=== PATIENT | male | born 1945 | race Caucasian/White ===

== ENCOUNTER 2016-09-23 15:55 | Inpatient (IN) | payer MEDICARE ==
[~2016-09-23] VITALS: Ht 180.3 cm; Wt 98.2 kg
--- NOTE | 2016-09-24 08:22 | HP ---
ADMIT: 09/23/2016 RM/LOC: 302 [facility] MR#: [id number] [address] [facility] [address] [place], [place] [address] [place] [address] History and Physical SEX: M AGE: 71 : 1945 DATE OF SERVICE: 09/23/2016 CHIEF COMPLAINT: Increasing shortness of breath over the last day or so - marked hypoxia on admission to the emergency room. HISTORY OF PRESENT ILLNESS: Mr. Pugh is a 71-year-old, male, [place] who [facility] by [facility] from his [facility] to the emergency room early this afternoon as he had been very short of breath. I cannot determine from the records and he cannot really tell me if he called the EMS himself or someone found him. At any rate on arrival in the emergency room, he was markedly hypoxic apparently into the high 60s. BiPAP was initiated, and he responded nicely to it. His workup included a mildly elevated white count of 13,000, but otherwise negative sepsis markers. Chest x-ray showed a COPD changes and right lower lobe pneumonia. He was lethargic on admission to the ER and "then perked up pretty well" on the BiPAP apparently back to his usual mental status. He is now admitted to ICU on continuing BiPAP for further evaluation and treatment. PAST MEDICAL HISTORY: Obtained from old records as it is hard for him to tell me through the BiPAP. He was last hospitalized apparently here in November 2009, with an exacerbation of the COPD. He also carries medical diagnoses of chronic atrial fibrillation, coronary artery disease, ongoing tobacco abuse, COPD with history of respiratory failure, systemic hypertension, chronic depression, posttraumatic stress disorder, chronic anxiety, hyperlipidemia, chronic back pain, benign prostatic hypertrophy, and hypothyroidism. CURRENT MEDICATIONS: Include: 1. Albuterol by nebulizer q.i.d. 2. Alfuzosin 10 mg daily. 3. Alprazolam 1 mg q.6 hours and extra 1 daily p.r.n. 4. Enteric-coated aspirin 81 mg daily. 5. Symbicort 160/4.5, 2 puffs b.i.d. 6. Carbamide peroxide 6.5%, 2 drops both ears once weekly p.r.n. 7. Cetirizine 10 mg daily. 8. Docusate 100 mg 2 caps b.i.d. p.r.n. 9. Doxepin 25 mg at bedtime. 10.Finasteride 5 mg daily. 11.Fluticasone 2 sprays both nostrils daily. 12.Furosemide 20 mg daily. 13.Glipizide 5 mg 1/2 tab b.i.d. 14.Hydrocodone 10/325, 1 tab q.4 hours p.r.n. 15.Levothyroxine 88 mcg daily. 16.Metoprolol tartrate 50 mg 2-1/2 tabs q.a.m. and 2 tabs q.p.m. 17.Multivitamin with minerals 1 daily. 18.Naloxone nasal spray 4 mg 1 spray one nostril p.r.n. 19.Nitrostat sublingual p.r.n. 20.Potassium chloride 10 mEq q.a.m. 21.Prazosin 2 mg 3 caps at bedtime. 22.Simvastatin 40 mg at bedtime. ADMIT: 09/23/2016 RM/LOC: 302 [facility] MR#: [id number] [address] [facility] [address] [place] [address] [address] History and Physical SEX: M AGE: 71 : 1945 23.Spiriva 18 mcg 1 inhalation daily. 24.Vitamin D3, 1000 international units daily. 25.Cyanocobalamin 100 mcg daily. 26.Ascorbic acid 500 mg daily. 27.Fish oil 1000 mg daily. 28.Garlic oil 1 tab daily. ALLERGIES: THERE ARE NO ALLERGIES REPORTED. SOCIAL HISTORY: Reveals that apparently he lives at home. He has a long history-nearly 50 pack years-of ongoing tobacco abuse and still smokes somewhere between 1-1/2 and 2 packs per day. He denies any alcohol use. As far as I can tell, he lives alone in his home in [place]. FAMILY HISTORY: Again from old records is essentially negative. REVIEW OF SYSTEMS: Difficult to get from him. He reports he had been "doing okay until this started." He denies any headache or any severe chest pain. He has had no nausea. He states his bowels have been working, and his bladder has been working. He has had no swelling of lower extremities. PHYSICAL EXAMINATION: GENERAL: He is now reasonably alert and seems oriented x3. I do not detect any obvious focal neurologic deficit. VITAL SIGNS: He is afebrile now. His pulse is irregular at about 110 to 115. Respirations are shallow at 22 on BiPAP. Blood pressures have been in the 120 to 140 range. GENERAL: He appears older than his stated age, has a long poorly kept pak, multiple tattoos over his entire body. His sclerae are anicteric. Oral mucosa is a little dry. I do not detect obvious oropharyngeal injection. NECK: Reasonably supple. I do not detect any jugular venous distention or thyromegaly. No bruits. CARDIAC: Sounds are quite distant. I do not detect an obvious murmur. His rhythm is irregularly irregular and again about 100 to 110 when I listened to him. LUNG: Sounds are markedly decreased, and he has scattered expiratory wheezes. ABDOMEN: Soft. No masses, tenderness, or organomegaly. EXTREMITIES: Lower extremities show no edema. He has diminished pulses in his feet, but his feet are warm. SKIN: No rash. Just multiple tattoos. NEUROLOGIC: Normal within his ability to test. LABORATORY DATA: On his initial CMP, his electrolytes were normal. His CO2 was greater than 45 mmHg, glucose 167, phosphorus 2.2, AST 46, and the CMP is otherwise within normal limits. Initial cardiac enzymes show an elevated CK at 692 U/L (normal 26 to 190) with a negative troponin of 0.039 (normal less than 0.040). His proBNP is 844 pg/mL. His white count is 12,600 with a slight left shift. Hemoglobin 16.2 with macrocytic indices. His ADMIT: 09/23/2016 RM/LOC: 302 [facility] MR#: [id number] [address] [address] [place] [address] History and Physical SEX: M AGE: 71 : 1945 procalcitonin is less than 0.05, and his lactic acid is 1.7 mmol/L. His chest x-ray was read as "some interstitial infiltrates in both lungs more prominent infiltrate is in the right lower lobe, cardiomegaly is present, but unchanged from the previous exam of 2013." PLAN: He has been admitted. We will put him in ICU on BiPAP (apparently, he reports having been intubated in the past). We will start dual antibiotic coverage and steroid intravenously. We will continue his usual medications as he can tolerate, and further treatment will depend on her response to our initial therapies. Again, this is a ID patient, and we do not feel he was clinically stable enough to be transferred to the [facility]. Apparently, Social Service will be in touch with ID during this hospitalization. Joss Davidson MD/ mars JOB #: [id number] CC: Joss Davidson, Attending Physician Joss Davidson, Family Physician
--- NOTE | 2016-09-26 22:26 | HP ---
ADMIT: 09/23/2016 RM/LOC: 302 [facility] MR#: [id number] [address] [address] ROWENAHAILEY[place]IANA Roger [facility] [place] [address] History and Physical SEX: F AGE: 71 : 1945 DATE OF SERVICE: ADDENDUM: IMPRESSION: 1. Apparent right lower lobe pneumonia with severe exacerbation chronic obstructive pulmonary disease. 2. Chronic atrial fibrillation - now with rapid ventricular response and hypertension. 3. Known coronary artery disease. 4. Ongoing tobacco abuse. 5. Systemic hypertension. 6. Chronic depression. 7. Posttraumatic stress disorder. 8. Chronic anxiety. 9. Hyperlipidemia. 10.Chronic pain syndrome/chronic back pain. 11.Benign prostatic hypertrophy. 12.Hypothyroidism. Joss Davidson MD/ mars JOB #: [id number] CC: Joss Davidson, Attending Physician Joss Davidson, Family Physician
--- NOTE | 2016-09-28 13:05 | ER ---
ADMIT: 09/23/2016 RM/LOC: 302 [facility] MR#: [id number] 26[address] [facility] [address] [place], [place] [address] ROWENAHAILEY KIANA Nancy [facility] [place] [address] Emergency Room Report SEX: M AGE: 71 : 1945 DATE: 09/23/2016 HISTORY OF PRESENT ILLNESS: The patient is a 71-year-old male, presents to the emergency room via ambulance from [place]. He has had shortness of breath and cough for 5 days, which continues in the emergency room. He feels pretty weak. He has had some wheezing. He has been sick. He literally tells that he is sick for 5 days. He has had fever at home. The ambulance when they picked him up, they said the fever was 102. He has some anxiety and his cough is very productive. He looks unkempt. REVIEW OF SYSTEMS: Otherwise, negative. PAST MEDICAL HISTORY: Extensive for respiratory problems like atrial fibrillation, coronary artery disease, tobacco abuse, COPD with history of respiratory failure, hypertension, depression, posttraumatic stress disorder, anxiety, hyperlipidemia, chronic back pain. SOCIAL HISTORY: Greater than 40 years pack history of tobacco abuse. He denies alcohol drinking at this time. FAMILY HISTORY: Negative for heart disease. ALLERGIES: NO KNOWN DRUG ALLERGIES. MEDICATIONS: See T-sheet. PHYSICAL EXAM: GENERAL: Very unkempt 71-year-old male, tattoos on his chest. HEENT: Oropharynx not injected. Mucous membranes are slightly dry. NECK: Supple. No thyromegaly. No jugular venous distention. HEART: Irregularly irregular. LUNGS: Decreased air movement throughout with diffuse expiratory wheezes. ABDOMEN: Soft, nontender. EXTREMITIES: No edema. No evidence of joint swelling. SKIN: Warm and dry without rash. LABORATORY DATA: He has a CBC; 12.6 white count, hemoglobin 16.2, hematocrit ADMIT: 09/23/2016 RM/LOC: 302 [facility] MR#: [id number] [address] [address] [place] [address] Emergency Room Report SEX: M AGE: 71 : 1945 52.4. Chemistry; CO2 more than 45, BUN 35, glucose 157, AST is 46, lactic acid of 1.1. Prolactin is also normal. INR is 1.17. BNP 844. Troponin 0.03. CK-MB 692, MB 6.5. His ABGs at 1710 on 4 L was pH of 7.2, pCO2 of 103, PO2 of 145. The repeated ABGs after the BiPAP improved greatly, pH 7.3, pCO2 of 74.1, PO2 is 69. Dr. Cesar visited with the patient and he reviewed the first ABGs, requested the BiPAP. We started antibiotic Levaquin. CLINICAL IMPRESSION: Nicotine abuse with respiratory distress, pneumonia, hypoxia, shortness of breath, wheezing, hyperglycemia. The patient admitted under Dr. Joss Davidson. He is not stable enough to travel to the [facility]. He was given Decadron 10 mg IV and normal saline 1 L. He is resting comfortably. JOHNNY Foreman / Cesar Cesar MD / modl JOB #: [id number] CC: Joss Davidson MD, Attending Physician Joss Davidson MD, Family Physician
[2016-10-01] MEDS ORDERED: PROVENTIL HFA6.7 GM IH (14:23)
[2016-10-01] MEDS ORDERED: XANAX DPS1 MG PO (14:24)
[2016-10-01] MEDS ORDERED: ASPIRIN325 MG PO (14:24)
[2016-10-01] MEDS ORDERED: ALFUZOSIN HCL E10 MG PO (14:24)
[2016-10-01] MEDS ORDERED: DULERA 200/58.8 GM IH (14:25)
[2016-10-01] MEDS ORDERED: DEBROX OTIC15 ML AU (14:26)
[2016-10-01] MEDS ORDERED: ZYRTEC DPS10 MG PO (14:26)
[2016-10-01] MEDS ORDERED: COLACE-DPS100 MG PO (14:26)
[2016-10-01] MEDS ORDERED: SINEQUAN DPS PO (14:26)
[2016-10-01] MEDS ORDERED: FLONASE 0.05% D16 GM NS (14:27)
[2016-10-01] MEDS ORDERED: PROSCAR DPS5 MG PO (14:27)
[2016-10-01] MEDS ORDERED: LASIX DPS40 MG PO (14:27)
[2016-10-01] MEDS ORDERED: SYNTHROID88 MCG PO (14:28)
[2016-10-01] MEDS ORDERED: HYDROCODON-ACE1 EAC6 PO (14:28)
[2016-10-01] MEDS ORDERED: GLUCOTROL DPS5 MG PO (14:28)
[2016-10-01] MEDS ORDERED: LOPRESSOR DPS100 MG PO (14:29)
[2016-10-01] MEDS ORDERED: LOPRESSOR DPS50 MG PO (14:29)
[2016-10-01] MEDS ORDERED: NARCAN4 MG IV (14:30)
[2016-10-01] MEDS ORDERED: NITROSTAT0.4 MG SL (14:30)
[2016-10-01] MEDS ORDERED: THERAPEUTIC MUL1 TA1 PO (14:30)
[2016-10-01] MEDS ORDERED: MINIPRESS2 MG PO (14:31)
[2016-10-01] MEDS ORDERED: SPIRIVA18 MCG IH (14:31)
[2016-10-01] MEDS ORDERED: ZOCOR DPS40 MG PO (14:31)
[2016-10-01] MEDS ORDERED: MICRO-K DPS10 MEQ PO (14:31)
[2016-10-01] MEDS ORDERED: GARLIC OIL1000 MG PO (14:32)
[2016-10-01] MEDS ORDERED: OMEGA-3 DPS1000 MG PO (14:32)
[2016-10-01] MEDS ORDERED: VITAMIN D31000 UNI1 PO (14:32)
[2016-10-01] MEDS ORDERED: VITAMIN B-12500 MCG PO (14:33)
[2016-10-01] MEDS ORDERED: VITAMIN C500 M1 PO (14:33)
[2016-10-01] MEDS ORDERED: TESSALON PERLE100 MG PO (14:34)
[2016-10-01] MEDS ORDERED: LEVAQUIN DPS750 MG PO (14:34)
[2016-10-01] MEDS ORDERED: PEPCID DPS20 MG PO (14:34)
[2016-10-01] MEDS ORDERED: MAALOX DPS30 ML PO (14:35)
[2016-10-01] MEDS ORDERED: MUCOMYST 20% IH (14:35)
[2016-10-01] MEDS ORDERED: DUONEB DPS3 ML IH (14:35)
[2016-10-01] MEDS ORDERED: TYLENOL DPS325 MG PO (14:36)
[2016-10-01] MEDS ORDERED: SURFAK DPS240 MG PO (14:36)
[2016-10-01] MEDS ORDERED: DELTASONE DPS10 MG PO (14:37)
--- NOTE | 2016-10-06 12:02 | DS ---
ADMIT: 09/23/2016 RM/LOC: 619 [facility] MR#: [id number] 2620 [facility] [address] [place], [place] [address] ROW[place]HAILEY [place] [address] General Discharge Summary SEX: M AGE: 71 : 1945 ADMISSION DATE: 09/23/2016 DISCHARGE DATE: 09/30/2016 FINAL DIAGNOSES: 1. 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 2. Posttraumatic stress disorder, stable. 3. Chronic atrial fibrillation. 4. Hyperlipidemia. 5. Hypothyroidism. 6. Benign prostatic hypertrophy. 7. Chronic pain syndrome. 8. Ongoing tobacco abuse. 9. Chronic anxiety and depression. 10.Known coronary artery disease. BRIEF HISTORY: This is a 71-year-old, male, [place] usually gets his care through the ID. He was brought by EMS from his [facility] to the emergency room the afternoon of admission as he had been extremely short of breath. He could not really tell me how long that it had been going on. On arrival in the emergency room, he was markedly hypoxic apparently into the high 60s. BiPAP was initiated and he responded nicely to it. His workup included a mildly elevated white count of 13,000, but otherwise negative sepsis markers. Chest x-ray showed COPD changes and right lower lobe pneumonia. He was admitted to ICU on continuing BiPAP for further evaluation and treatment. SIGNIFICANT LAB AND X-RAY: On admission CBC showed a hemoglobin of 16.2 with macrocytic indices, platelets of 186,000, and white count of 12,600. Serial CBCs were followed and by 09/30 his hemoglobin was 12.4, still with macrocytic indices. The white count of 12,000. Pro-time and PTT on admission were normal. Admitting urinalysis showed 3+ protein, 1+, ketones, 2+ occult blood and was otherwise within normal limits. On admission, cardiac enzymes were evaluated and repeated x1 and were negative. On admission, CMP was normal but for a CO2 greater than 45 mmol/L, glucose of 157 mg/dL, phosphorus of 2.2 mg/dL (normal 2.5-4.9), AST of 46 U/L (normal 10- 40). His magnesium was 2.1 mg/dL (normal 1.8-2.4). On admission, proBNP was 844 pg/mL. Serial chemistries were followed. On 09/25, his lactic acid was 1.2 mmol/L. By 09/30 his BMP showed CO2 greater than 45 mmol/L, glucose of 151 mg/dL and ADMIT: 09/23/2016 RM/LOC: 619 [facility] MR#: [id number] [address] [address] [place] [address] General Discharge Summary SEX: M AGE: 71 : 1945 calcium was 7.8 mg/dL. Serial bedside blood sugars were followed. Serial blood gases were followed. On admission in the ER, his corrected pH was 7.274 with a corrected pCO2 of 102.6 mmHg (normal 35 to 45), and corrected pO2 of 143 mmHg (normal 80-100) with a calculated O2 saturation of 99%. On 09/26, C-reactive protein was 0.63 mg/dL (normal less than 0.30), and repeat on 09/27 was 0.40 mg/dL. On 09/24, Legionella pneumophila urine antigen was positive and strep pneumoniae urine antigen was negative. Admission blood cultures x2 had no growth after 5 days incubation. Admitting urine culture had no growth after 5 days incubation. Respiratory pathogen viral panel had no targets detected. The patient's blood type is A, Rh positive with a negative antibody screen. Chest x-ray on admission showed "cardiomegaly and right lower lobe infiltrate." Serial chest x-rays were followed and by 09/27 was read as "decreased ground-glass opacities of the lung bases worse on the right. Could be decreasing edema or infectious process. No pleural effusion. Heart size stable." EKG on admission was read as atrial fibrillation with rapid ventricular response, rightward axis, possible septal defect, age undetermined compared to 07/17/2014 loss of R-wave in V2." HOSPITAL COURSE: The patient was admitted through the emergency room to ICU with routine ICU orders and continued on BiPAP. The ER sepsis protocol was followed with levofloxacin 750 mg IV daily and Zosyn 3.375 g IV q.8 hours. DuoNeb were given q.i.d. and q.1-2 hours p.r.n. BiPAP oxygen was adjusted to maintain his sats greater than 90. An IV of normal saline was run at 50 mL/hour. He was allowed full liquids. He was placed on low-dose Humalog with q.i.d. Accu-Cheks per protocol. His med list from the ID was confirmed. Contact was had by the nursing staff with his daughter Jessie from [facility] stating that he would wear O2 at 4 L at home sometimes increase for activity, but he had no home CPAP or BiPAP. By 09/24, I attempted to wean from BiPAP, we were not totally successful. His Zosyn was discontinued. He was changed to routine telemetry orders. By 09/25, he was still hypoxic and was resistant to using any kind of mask. Pulmonary consultation with Dr. Gonzalez was requested and Dr. Gonzalez was kind enough to see him. Mucomyst 20%, q.i.d. was added, his Solu-Medrol was decreased to mg IV q.12 hours. He was placed on Pepcid 20 mg at ADMIT: 09/23/2016 RM/LOC: 619 [facility] MR#: [id number] [address] [address] [place] [id number] General Discharge Summary SEX: M AGE: 71 : 1945 bedtime. The patient was allowed Xanax 0.5 mg q.i.d. p.r.n. By 09/26 he was starting to clear without much in the way of wheezes. His IV was decreased to keep open rate. Physical Therapy and Occupational Therapy were requested. His Solu-Medrol was decreased to mg IV q.12 hours. By 09/27 (ICU day 4), he remained afebrile. Vital signs were otherwise stable. His pulse was 70-100 with atrial fibrillation. His chest x-ray was improved. Nasal cannula O2 delivery was tried during the day. His IV Solu-Medrol was discontinued. He was placed on prednisone 30 mg p.o. daily and Levaquin was changed to 750 mg p.o. q.24 hours. He was given Tessalon 200 mg t.i.d. and BiPAP was made p.r.n. Incentive spirometry was initiated. On 09/27, he was unable to void, but had the urge, that was just monitored. By 09/28 (hospital day 5) he remained afebrile. Vital signs were stable. He was alert, had no distress. He was tolerating his nasal cannula. Home health consultation was requested for eventual help with snf, physical therapy, and help with his ADLs. He was taken off telemetry and placed on routine Med/Surg orders. Through all this, the social service department [facility] with the [facility] who were [facility] throughout his hospital stay. By 09/29, he had slow improvement and by 09/30, he remained afebrile. He felt he could manage things at home and was felt safe to send him home. DISCHARGE MEDICATIONS: On dismissal, his medications included: 1. Prednisone 30 mg daily for 5 days and 20 mg daily for 5 days then 10 mg daily for 5 days and then stop. 2. Aspirin 81 mg daily. 3. Glucotrol 5 mg 2.5 mg b.i.d. 4. Lasix 20 mg daily. 5. Levaquin 750 mg p.o. daily x 5 more days. 6. Lopressor 100 mg at bedtime and 125 mg in the a.m. 7. Minipress 6 mg at bedtime. 8. Farwell-3 2000 mg daily. 9. Pepcid 20 mg at bedtime. 10.Proscar 5 mg daily. 11.Sinequan 25 mg at bedtime. 12.Synthroid 0.088 mg daily. 13.Tessalon Perles 200 mg t.i.d. 14.Multivitamin one daily. 15.Uroxatral 10 mg daily. 16.Vitamin B12 500 mcg daily. 17.Vitamin C 500 mg daily. 18.Vitamin D 1000 International Units daily. 19.Xanax 1 mg q.i.d. 20.Zocor 40 mg at bedtime. 21.Zyrtec 10 mg daily. ADMIT: 09/23/2016 RM/LOC: 619 [facility] MR#: [id number] [address] [address] [address] [address] General Discharge Summary SEX: M AGE: 71 : 1945 22.Symbicort 160/4.5, two puffs b.i.d. 23.DuoNeb q.i.d. and p.r.n. with Mucomyst q.i.d. 24.Spiriva 18 mcg daily. 25.Flonase 0.05% two sprays each nostril at bedtime. 26.P.r.n. orders for Colace, hydrocodone, Maalox, Surfak, Tylenol, Xanax, DuoNeb, Proventil, Nitrostat, and Debrox ear drops. He will be allowed ADA diet as tolerated and activity as tolerated. Home health will be contacted. Arrangements were made for him to be seen at the [facility] in 5-7 days in followup. He was encouraged to stop his cigarette use at home. CONDITION ON DISCHARGE: Condition on discharge was stable on the above treatment. FINAL DISPOSITION: As noted. PROGNOSIS: Guarded to poor. Joss Davidson MD/ mars JOB #: [id number] CC: Joss Davidson MD, Attending Physician Joss Davidson MD, Family Physician Mike Gonzalez MD . [facility]
[2016-10-12] MEDS ORDERED: GLUTOSE 1537.5 GM PO (06:41)
--- NOTE | 2016-10-19 16:07 | CO ---
ADMIT: 09/23/2016 RM/LOC: 302 [facility] MR#: [id number] 2620 [facility] [address] [place] [phone] [place] [address] Consultation SEX: M AGE: 71 : 1945 DATE OF CONSULTATION: 09/25/2016 ATTENDING PHYSICIAN: Joss Davidson CONSULTING PHYSICIAN: Mike Gonzalez MD This 71-year-old, white male, smoker (began at 18 years old) [facility] patient with PTSD with history of COPD exacerbation, reportedly hospitalized in November of 2009 with also a history of atrial fibrillation who presented with marked increased shortness of breath for what is believed to be 2 days. The patient was brought to the emergency room and was stated to have a "respiratory rate of 60" cough suggestive of productive and thick, he reports with pale yellow. The patient does not have any fever or chills and shortness of breath while chronic became significantly worse. No difficulty eating, liquids or solids. He has satisfactory urine and bowel movements daily and is able to ambulate around his home. PAST SURGICAL HISTORY: Tonsillectomy. ILLNESSES: Atrial fibrillation, hypertension, PTSD, anxiety, hyperlipidemia, BPH, hypothyroidism. MEDICATIONS: Current: 1. Aspirin. 2. Glucotrol. 3. Lasix 20 mg daily. 4. Lopressor 125 mg daily and 100 mg at bedtime. 5. Freedom 3. 6. Proscar. 7. Sinequan. 8. Synthroid. 9. Multivitamin. 10.Uroxatral. 11.Vitamin B12. 12.Vitamin C and D. 13.Xanax 1 mg p.o. q.i.d. 14.Zocor 40 mg at bedtime. 15.Zyrtec. 16.Dulera. 17.DuoNeb. 18.Spiriva. 19.Flonase. 20.Lovenox. 21.NovoLog. 22.Levaquin. 23.Normal saline. 24.Solu-Medrol 80 mg IV q.12. Home medications do not include prednisone or proton-pump inhibitor or H2 ADMIT: 09/23/2016 RM/LOC: 302 [facility] MR#: [id number] 2620 [facility] [address] [place] [phone] [place] [facility] [place] [address] Consultation SEX: M AGE: 71 : 1945 syl. FAMILY HISTORY: Father at 59 years old with complications of diabetes. Mother 69 years old of lung cancer. SOCIAL HISTORY: Lives alone, , 4 children, one smokes, but all alive and well. Alcohol, quit 20 years but reports not heavy to the level of AA. Tobacco started 18 years old. Worked as a blanca. Resides with his dog, Konstantin. REVIEW OF SYSTEMS: Weight, uncertain changes. PHYSICAL EXAM: GENERAL: Appears chronically ill, but also has been confused, dyspneic. VITAL SIGNS: Heart rate is atrial fibrillation at 113-119, SpO2 is 99% on 51% Airvo now, blood pressure 118/75, respiratory rate 18 to 24, temp 99. HEENT: Nares and throat are clear and very dry. Mallampati III. NECK: No lymphadenopathy or JVD. HEART: Regular rate and rhythm. LUNGS: Decreased breath sounds bilaterally. Prolonged expiratory phase. Mild wheeze. ABDOMEN: Soft, slightly distended. Nontender. No definite hepatosplenomegaly. EXTREMITIES: Plus minus clubbing. No cyanosis or edema. NEURO: Motor and sensory grossly intact. Affect is slightly confused and somewhat anxious. LABORATORY DATA: ABG 7.38, pCO2 of 74, PO2 of 69, sats 92%. AST is 46. ProBNP is 844, D-dimer is less than 0.10. WBC 9.3, hemoglobin 15.0, and platelet 179. Chest x-ray 09/24/2016, COPD, emphysema. ASSESSMENT AND RECOMMENDATION: 1. Acute on chronic respiratory failure - The patient has been intolerant of BiPAP and has been adjusting and will start to adjust to an Airvo unit, first initiated change appears to be reasonable. We will try to obtain an ABG and/or even use a brief evaluation of end-tidal, noninvasive ABGs not obtainable and the patient remains on only a low O2 requirement. 2. Posttraumatic stress disorder, stable. 3. Chronic obstructive pulmonary disease - the patient has not been on any prednisone at home, so we will adjust down his Solu-Medrol 30 mg IV q.12, see if this contributes to confusion. 4. Hypoxia - the patient reports being on 2 L at rest and 4 L at bedtime at ADMIT: 09/23/2016 RM/LOC: 302 [facility] MR#: [id number] [address] [place] [phone] [place] [address]361 Consultation SEX: M AGE: 71 : 1945 home. This will need to be clarified as well. 5. Atrial fibrillation. 6. Hyperlipidemia. 7. Hypothyroidism. 8. BPH. 9. Chronic pain syndrome. 10.Tobacco abuse - discussed with him about quitting ensued as well and will be ongoing. 11.Chronic anxiety. 12.Rehab - the patient would likely benefit significantly from a formal program, but needs to quit smoking. Total critical care time greater than 45 minutes. Mike Gonzalez MD/ mars JOB #: [id number] CC: Joss Davidson, Attending Physician Joss Davidson, Family Physician
[2016-11-02] MEDS ORDERED: FEOSOL-DPS325 MG PO (15:08)
[2016-11-02] MEDS ORDERED: UROXATRAL10 MG PO (15:13)
[2016-11-02] MEDS ORDERED: LEVEMIR100 UNIT/1 SQ (15:16)
[2016-11-02] MEDS ORDERED: LOVENOX DP40 MG/0.4 SQ (15:16)
[2016-11-02] MEDS ORDERED: NOVOLOG100 UNIT/2 SQ (15:18)
[2016-11-02] MEDS ORDERED: GLUCAGON HCL1 MG IM (15:22)
== END 2016-09-30 15:05 | disposition home or self-care (01) | DRG 177 ==
LOC: ER 15:55 → 3ICU 19:45 → EDSEX 19:45 → 3ICU 09-24 16:47 → 6PED 09-29 15:24
PROVIDERS: ADMIT Family Medicine
DX: A48.1 Legionnaires' disease (principal); J96.21 Acute and chronic respiratory failure with hypoxia; I48.2 Chronic atrial fibrillation; J44.0 Chronic obstructive pulmonary disease with (acute) lower respiratory infection; J17 Pneumonia in diseases classified elsewhere; I25.10 Atherosclerotic heart disease of native coronary artery without angina pectoris; I10 Essential (primary) hypertension; F32.9 Major depressive disorder, single episode, unspecified; F43.10 Post-traumatic stress disorder, unspecified; F41.9 Anxiety disorder, unspecified; E78.5 Hyperlipidemia, unspecified; N40.0 Benign prostatic hyperplasia without lower urinary tract symptoms; G89.4 Chronic pain syndrome; M54.9 Dorsalgia, unspecified; F17.210 Nicotine dependence, cigarettes, uncomplicated; E03.9 Hypothyroidism, unspecified; Z79.82 Long term (current) use of aspirin; Z79.84 Long term (current) use of oral hypoglycemic drugs

== ENCOUNTER 2016-10-07 09:06 | Inpatient (IN) | payer MEDICARE ==
[~2016-10-07] VITALS: Ht 179.1 cm; Wt 104.9 kg
[~2016-10-07 09:06] MED LIST: ALFUZOSIN HCL E10 MG PO; ASPIRIN325 MG PO; COLACE-DPS100 MG PO; DEBROX OTIC15 ML AU; DELTASONE DPS10 MG PO; DULERA 200/58.8 GM IH; DUONEB DPS3 ML IH; FLONASE 0.05% D16 GM NS; GARLIC OIL1000 MG PO; GLUCOTROL DPS5 MG PO; HYDROCODON-ACE1 EAC6 PO; LASIX DPS40 MG PO; LEVAQUIN DPS750 MG PO; LOPRESSOR DPS100 MG PO; LOPRESSOR DPS50 MG PO; MAALOX DPS30 ML PO; MICRO-K DPS10 MEQ PO; MINIPRESS2 MG PO; MUCOMYST 20% IH; NARCAN4 MG IV; NITROSTAT0.4 MG SL; OMEGA-3 DPS1000 MG PO; PEPCID DPS20 MG PO; PROSCAR DPS5 MG PO; PROVENTIL HFA6.7 GM IH; SINEQUAN DPS PO; SPIRIVA18 MCG IH; SURFAK DPS240 MG PO; SYNTHROID88 MCG PO; TESSALON PERLE100 MG PO; THERAPEUTIC MUL1 TA1 PO; TYLENOL DPS325 MG PO; VITAMIN B-12500 MCG PO; VITAMIN C500 M1 PO; VITAMIN D31000 UNI1 PO; XANAX DPS1 MG PO; ZOCOR DPS40 MG PO; ZYRTEC DPS10 MG PO
--- NOTE | 2016-10-08 12:40 | ER ---
ADMIT: 10/07/2016 RM/LOC: ER [facility] MR#: [id number] 26[address] [facility] [address] SAMANTHA PUGH [address] [address] Emergency Room Report SEX: M AGE: 71 : 1945 DATE: 10/07/2016 ADDENDUM: A 71-year-old white male, though he does go by Samantha, coming in with shortness of breath. He has COPD. He recently was admitted for pneumonia, questionable Legionella. His lactate is okay, but his white count is 14,000. Did a CT of his chest, which did not show a PE or pneumonia, just more COPD. His Chemistry is otherwise negative. Troponin had just barely a slight bump. He does have atrial fibrillation, his rate is 78. [facility] I spoke with Dr. Bowen, she will admit him. We had already given Zosyn and vanc just to cover him. So, this is COPD with exacerbation, been a little hypoxia. At this time, he also has other multiple medical comorbidities. CONDITION ON DISCHARGE: Serious, but stable. Jamar Carrington MD/ mars JOB #: [id number] CC: Jamar Carrington MD, Attending Physician [facility] Physician, Family Physician
--- NOTE | 2016-10-09 08:03 | HP ---
ADMIT: 10/07/2016 RM/LOC: 431 [facility] MR#: [id number] 2620 [facility] [address] [place] [phone] [place] [address] History and Physical SEX: M AGE: 71 : 1945 DATE OF SERVICE: CHIEF COMPLAINT: Shortness of breath. HISTORY OF PRESENT ILLNESS: Samantha is a 71-year-old, male, who generally gets care through the NH, who is admitted today as a city call patient. He was just admitted 2 weeks ago for pneumonia and COPD exacerbation. He was at that time treated in the intensive care unit, but did improve. He was discharged on September 30. He says he did not feel quite ready to go home, but they could not find any placement for him at the NH or in [place] so he went home with home health care. At that time, he continued his medications including a prednisone taper, antibiotics, and DuoNeb 4 times daily. He is also on chronic oxygen. He says he continues to decline since being at home, and when the home health came to evaluate him today, he was hypoxic supposedly with oxygen saturations in the 70s. He also has felt weak and this has been progressive. He now has difficulty getting in and out of a chair. He says his diet has been poor, and he has difficulty feeding himself. He has been getting meal trays from Home Health apparently. Given his hypoxia, he was transferred to the emergency department for further evaluation. CT scan was performed and did not show any pneumonia. There was concern for bronchitis. Oxygen was increased to 5 to 6 L from his baseline of 4 to 5 L. He improved with this. He was also given DuoNeb breathing treatment as well as IV Decadron. It was thought best to admit for further evaluation and treatment. PAST MEDICAL HISTORY: Unchanged from H and P dated September 23, 2016. MEDICATIONS: 1. Albuterol 2 puffs q.i.d. p.r.n. 2. Alprazolam 1 mg q.i.d. p.r.n. 3. Alfuzosin 10 mg daily. 4. Aspirin 81 mg daily. 5. Symbicort 160 mcg 2 puffs twice daily. 6. Debrox eardrops weekly as needed. 7. Zyrtec 10 mg daily. 8. Docusate 200 mg twice daily as needed. 9. Doxepin 25 mg at bedtime. 10.Finasteride 5 mg daily. 11.Fluticasone 2 sprays daily. 12.Lasix 20 mg daily. 13.Glipizide 2.5 mg twice daily. 14.Hydrocodone 10/325 q.4 hours p.r.n. pain. 15.Levothyroxine 88 mcg daily. 16.Metoprolol 125 mg daily and 100 mg in the evening. 17.Multivitamin daily. 18.Naloxone 4 mg nasal spray as needed for opiate overdose. 19.Nitrostat p.r.n. 20.Potassium chloride 10 mEq daily. 21.Prazosin 6 mg at bedtime. ADMIT: 10/07/2016 RM/LOC: 431 [facility] MR#: [id number] [address] [place] [phone] [place] [address] History and Physical SEX: M AGE: 71 : 1945 22.Simvastatin 40 mg at bedtime. 23.Spiriva 18 mcg daily. 24.Garlic 1000 mg daily. 25.Fish oil 2000 mg daily. 26.Vitamin D 1000 units daily. 27.Vitamin B12, 100 mcg daily. 28.Vitamin C 500 mg daily. 29.Famotidine 20 mg at bedtime. 30.Tessalon Perles 200 mg t.i.d. 31.DuoNeb q.i.d. and q.1 hour p.r.n. 32.Mucomyst 2 mL q.i.d. 33.Maalox 30 mL as needed. 34.Surfak as needed. 35.Tylenol as needed. ALLERGIES: NO KNOWN MEDICAL ALLERGIES. SOCIAL HISTORY: Unchanged from H and P dated September 23, 2016. FAMILY HISTORY: Unchanged from H and P dated September 23, 2016. REVIEW OF SYSTEMS: As per HPI. Others reviewed and negative. PHYSICAL EXAMINATION: VITAL SIGNS: Temperature 98.8, pulse 105, respiratory rate 24, blood pressure 133/86, and oxygen saturation 97% on 4 L O2 nasal cannula. GENERAL: The patient is awake, alert, in no acute distress. Cooperative. HEENT: Within normal limits, although he does have a chronic dysconjugate gaze. Heart slightly tachycardic and irregular. Unable to appreciate any murmurs. LUNGS: Diminished throughout. He does have wheezing. No crackles. No accessory muscle use. ABDOMEN: Soft, nontender, nondistended. Normal bowel sounds. EXTREMITIES: Warm and dry. No edema. NEUROLOGIC: Cranial nerves II through XII grossly intact other than his chronic dysconjugate gaze. No focal neurologic deficit. SKIN: No obvious rash or lesion. He does have numerous tattoos. PSYCHIATRIC: The patient's mood and affect are appropriate. LABORATORY DATA: Please see electronic record for full details. Of note, his creatinine was within normal limits of 0.9. LFTs are also within normal limits at 19 for AST and 34 for ALT. White blood cell count mildly elevated at 14.3 with increased neutrophils of 11.1. Hemoglobin stable at 14.5, and platelets at 243. Troponin mildly elevated at 0.046. Urinalysis has not yet been received. Procalcitonin was less than 0.015. EKG shows atrial fibrillation with a heart rate of 93. ADMIT: 10/07/2016 RM/LOC: 431 [facility] MR#: [id number] 0000 [facility] [address] [place] [phone] [address] PU[address] [facility] ([place], [place]), [place] [address] History and Physical SEX: M AGE: 71 : 1945 IMAGING: Chest x-ray showed prominent interstitial markings and chronic pulmonary nodules. CT scan also shows a stable noncalcified nodules as well as emphysematous change. No PE. No consolidation noted. Blood cultures were obtained. ASSESSMENT AND PLAN: 1. Acute hypoxic respiratory failure. This is likely secondary to chronic obstructive pulmonary disease. Concern given recent history of pneumonia that there is some underlying pneumonia as well, so we will put him on empiric Levaquin and monitor white blood cell count and procalcitonin. 2. Chronic obstructive pulmonary disease exacerbation. We will treat with IV steroids, DuoNeb, and oxygen. 3. Generalized weakness and debility. We will have Social Work consider placement. We will also have Physical and Occupational therapy work with him as well. 4. Diabetes mellitus type 2. We will check A1c to assess long-term control. We will continue with diabetic diet and sliding scale insulin as needed. 5. Mildly elevated troponin. No signs of acute coronary syndrome at this time. We will recheck his troponin this evening. No known history of coronary artery disease. 6. Chronic atrial fibrillation. Rates are currently controlled. We will continue his metoprolol. He is not on any anticoagulation at this time at home. We will start him on subcu Lovenox for deep venous thrombosis prophylaxis and obtain [facility] to see why he is no longer on anticoagulation. 7. Chronic anxiety and posttraumatic stress disorder. We will continue his home medications. Mood appears stable. 8. Chronic pain. We will make no changes at this time. 9. Hypertension, well controlled. 10.Hyperlipidemia. We will continue statin. 11.Hypothyroidism. We will continue his replacement and check a TSH. 12.Disposition. We will treat his COPD exacerbation, and once on baseline oxygen, plan for discharge. Recommend placement at this time given concern for safety at home living independently. Maureen Bowen MD/ mars JOB #: [id number] CC: Maureen Bowen, Attending Physician [facility]-Julian Physician, Family Physician
[2016-10-12] MEDS ORDERED: GLUTOSE 1537.5 GM PO (06:41)
--- NOTE | 2016-10-16 08:11 | DS ---
ADMIT: 10/07/2016 RM/LOC: 431 [facility] MR#: [id number] 2620 [facility] [address] [place] [phone] [place] [address] General Discharge Summary SEX: M AGE: 71 : 1945 ADMISSION DATE: 10/07/2016 DISCHARGE DATE: 10/11/2016 DISCHARGE DIAGNOSES: 1. Acute chronic obstructive pulmonary disease exacerbation. 2. Debility and generalized weakness. 3. Chronic atrial fibrillation. 4. Chronic hypertension. 5. Generalized anxiety. 6. Posttraumatic stress disorder. 7. Tobacco abuse. 8. Type 2 diabetes mellitus. 9. Mildly elevated troponin. 10.Chronic pain. CONSULTS: None. PROCEDURES: None. REASON FOR ADMISSION: The patient was admitted from the emergency department as a city call patient for failure of outpatient management of his chronic medical problems as well as new onset COPD exacerbation. Please see H and P for full details. HOSPITAL COURSE: The patient was admitted to the progressive care unit for treatment of his COPD exacerbation as well as evaluation for placement. He was started on IV Solu-Medrol and DuoNeb. He required oxygen to maintain normal oxygen saturations at 4 to 5 L. Lovenox was initiated for DVT prophylaxis. Discussed long-term anticoagulation with the patient due to his stroke risk from chronic atrial fibrillation, but he declines outpatient anticoagulation as he says this was stopped for some unknown reason as an outpatient. Physical Therapy, Occupational Therapy, and Social Work was consulted to assist with his general weakness, debility, and need for placement given failure of ability to care for himself at home. He did have a mildly elevated troponin on admission, but no chest pain. His troponin did normalize. He was initiated on daily Levaquin given recent history of pneumonia and new onset pulmonary symptoms with COPD exacerbation. This was able to be weaned to oral by hospital day #2. With his chronic diabetes and need for steroid use secondary to COPD exacerbation, he did experience some hyperglycemia during hospitalization. This was treated with sliding scale insulin. He was continued on a diabetic diet. He was switched from IV steroids to oral prednisone on October 09 and changed to telemetry status given stability of his symptoms. He was stable for discharge by the morning of October 11. DISCHARGE MEDICATIONS: 1. Aspirin 81 mg daily. 2. Prednisone 60 mg today then tapering. 3. Glucotrol 2.5 mg b.i.d. ADMIT: 10/07/2016 RM/LOC: 431 [facility] MR#: [id number] 2620 [facility] [address] [place] [phone] [facility] [address] General Discharge Summary SEX: M AGE: 71 : 1945 4. Lasix 20 mg daily. 5. Levaquin 750 mg daily for a total of 7 days. 6. Lopressor 100 mg b.i.d. and 25 mg in addition daily. 7. Potassium chloride 10 mEq daily. 8. Minipress 6 mg daily. 9. [place]-3, 2000 mg daily. 10.Pepcid 20 mg daily. 11.Proscar 5 mg daily. 12.Seroquel 25 mg daily. 13.Synthroid 88 mcg daily. 14.Tessalon Perles 100 mg t.i.d. 15.Multivitamin daily. 16.Uroxatral 10 mg daily. 17.Vitamin B12, 100 mcg daily. 18.Vitamin C 500 mg daily. 19.Vitamin D 1000 units daily. 20.Zocor 40 mg daily. 21.Zyrtec 10 mg daily. 22.Symbicort 160 mg 2 puffs b.i.d. 23.DuoNeb p.r.n. 24.Spiriva 18 mcg daily. 25.Flonase 2 sprays daily. 26.Colace p.r.n. 27.Glucose tabs p.r.n. 28.Hydrocodone 10/325 q.4 hours p.r.n. 29.Surfak 240 b.i.d. p.r.n. 30.Tylenol p.r.n. 31.Xanax p.r.n. 32.Proventil p.r.n. 33.Debrox ear drops p.r.n. 34.Narcan nasal spray p.r.n. DISCHARGE INSTRUCTIONS: The [facility]. Doctor to doctor communication was performed. He will follow up with his [facility] primary care provider. We will continue with diabetic diet, and activity as tolerated. We will continue with his home oxygen needs in the 4 to 5 L range. Greater than 30 minutes was spent in discharge. Maureen Bowen MD/ mars JOB #: [id number] CC: Maureen Bowen MD, Attending Physician [facility]-Sophia Physician, Family Physician
[2016-11-02] MEDS ORDERED: FEOSOL-DPS325 MG PO (15:08)
[2016-11-02] MEDS ORDERED: UROXATRAL10 MG PO (15:13)
[2016-11-02] MEDS ORDERED: LOVENOX DP40 MG/0.4 SQ (15:16)
[2016-11-02] MEDS ORDERED: LEVEMIR100 UNIT/1 SQ (15:16)
[2016-11-02] MEDS ORDERED: NOVOLOG100 UNIT/2 SQ (15:18)
[2016-11-02] MEDS ORDERED: GLUCAGON HCL1 MG IM (15:22)
== END 2016-10-11 13:05 | DRG 190 ==
LOC: ER 09:06 → 4PCU 14:32
PROVIDERS: ADMIT Family Medicine
DX: J44.1 Chronic obstructive pulmonary disease with (acute) exacerbation (principal); J96.01 Acute respiratory failure with hypoxia; Z99.81 Dependence on supplemental oxygen; I48.2 Chronic atrial fibrillation; I25.10 Atherosclerotic heart disease of native coronary artery without angina pectoris; F41.1 Generalized anxiety disorder; I10 Essential (primary) hypertension; F32.9 Major depressive disorder, single episode, unspecified; F43.10 Post-traumatic stress disorder, unspecified; E11.9 Type 2 diabetes mellitus without complications; E78.5 Hyperlipidemia, unspecified; M54.9 Dorsalgia, unspecified; F17.210 Nicotine dependence, cigarettes, uncomplicated; E03.9 Hypothyroidism, unspecified; Z79.82 Long term (current) use of aspirin; Z79.84 Long term (current) use of oral hypoglycemic drugs

== ENCOUNTER 2016-10-25 10:14 | Inpatient (IN) | payer MEDICARE ==
[~2016-10-25] VITALS: Ht 179.1 cm; Wt 109.4 kg
--- NOTE | ~2016-10-25 | WND ---
ADMIT: 10/25/2016 RM/LOC: 310 [facility] MR#: [id number] [address] [facility] [address] [place], [place] [phone] JANISKATYFABRICE [place] [address] Wound Care Clinic SEX: M AGE: 71 : 1945 DATE OF VISIT: 10/26/2016 TIME IN: 1645 hours. TIME OUT: 1700 hours. REASON FOR VISIT: Evaluation and treatment of sores on his heels. HISTORY OF PRESENT ILLNESS: This is a 71-year-old male, who is being seen in the ICU. He had been admitted to [facility] from 10/07/2016 to 10/11/2016 with acute chronic obstructive pulmonary disease exacerbation, debility, generalized weakness, chronic atrial fibrillation, chronic hypertension, generalized anxiety, posttraumatic stress disorder, tobacco abuse, type 2 diabetes mellitus, mildly elevated troponin, and chronic pain. He was then seen in the emergency room on 10/25/2016 with shortness of breath. He had been recuperating and rehabilitating at the [facility]. It was felt in the emergency room that it was a COPD and congestive heart failure. He was given Decadron and Lasix and admitted for further evaluation and care. He has had multiple hospital stays over the course of the last month or two for COPD exasperation and pneumonia. He was readmitted with altered mental status and found to have another COPD exacerbation with respiratory failure. Initially on BiPAP; however, now he is on O2 per nasal cannula. Upon admission, it was noted he had some sores on his toes, so Wound Care was consulted. PAST MEDICAL HISTORY: Obtained from previous record show COPD with multiple exacerbations. Chronic atrial fibrillation. Coronary artery disease. Ongoing tobacco abuse. COPD with history of respiratory failure. Systemic hypertension. Chronic depression. Posttraumatic stress disorder. Chronic anxiety. Hyperlipidemia. Chronic back pain. Benign prostatic hypertrophy. Hypothyroidism. ALLERGIES: No known medication allergies. CURRENT MEDICATIONS: Per the MAR. Please see the MAR for further details. 1. Aspirin. 2. Colace. 3. Feosol. 4. Glucotrol. 5. Lopressor. 6. Micro-K. 7. Minipress. 8. [place]-3. 9. Pepcid. 10.Proscar. 11.Sinequan. 12.Synthroid. 13.Tessalon Perles. ADMIT: 10/25/2016 RM/LOC: 310 [facility] MR#: [id number] [address] [phone] [facility] [place] [address] Wound Care Clinic SEX: M AGE: 71 : 1945 14.Therapeutic multivitamins. 15.Uroxatral. 16.Vitamin B12. 17.Vitamin C. 18.Vitamin D. 19.Zocor. 20.Zyrtec. 21.Dulera. 22.DuoNeb. 23.Flonase. 24.Lovenox. 25.NovoLog. 26.Debrox. 27.Levaquin. 28.Solu-Medrol. 29.Zosyn. PRN medications: 1. Glutose. 2. Hydrocodone/acetaminophen. 3. Tylenol. 4. Xanax. 5. Proventil. 6. Xopenex. 7. Glucagon. 8. Tylenol suppository. 9. Nitrostat D50. FAMILY HISTORY: Obtained from previous records shows mother with heart disease. Lung cancer, at age 59. Father with diabetes, at age 69, 2 siblings from methadone abuse. SOCIAL HISTORY: He is . He usually lives in [place]. He smokes a pack and a half per day. Denies any current alcohol or illicit drug use. Currently rehabbing at the [facility]. REVIEW OF SYSTEMS: He is examined in his hospital room where he is awake, alert, and oriented x3. He has O2 per nasal cannula in place. He states he has some shortness of breath. No current nausea or vomiting. No current cough or congestion. No current abdominal pain. He has no pain in his toes, although he says the left 3rd toe is "tender." PHYSICAL EXAMINATION: VITAL SIGNS: 96.9, 80, 18, blood pressure 122/84, O2 sat on nasal cannula 96%. Bilateral lower extremities shows a right lower extremity with a foot circumference of 27 cm, ankle is 30 cm, and calf 20 cm, malleolus is 32 cm. Posterior tibialis and dorsalis pedis is 2+. He does have some puffy edema ADMIT: 10/25/2016 RM/LOC: 310 [facility] MR#: [id number] [address] [place] [phone] [place] [address] Wound Care Clinic SEX: M AGE: 71 : 1945 and fading erythema noted on his dorsal foot. On his great toe, he has 3 small crusts; one that measures 0.5 cm x 0.6 cm, another 0.2 cm x 0.2 cm, and on the lateral great toe 0.3 cm x 0.3 cm. These are light brown in nature with no surrounding erythema or induration. On the 2nd toe, he has a small crust that measures 0.1 cm x 0.3 cm and another that is 0.1 cm x 0.1 cm. On the 3rd toe, there is a small crust that measures 0.5 cm x 0.3 cm. These all have light brown color. No surrounding erythema or induration. To the left lower extremity, foot circumference is 28 cm, ankle is 27.5 cm, and calf 20 cm, malleolus is 32.5 cm. Posterior tibialis and dorsalis pedis is 2+. On the 2nd toe of his left foot, there is an area that shows lifting epithelium and an ulceration that measures 0.4 cm x 0.4 cm, depth of 0.1 cm with a red moist wound base and loose epithelium noted. No surrounding erythema or induration. He also has a puffy dorsal foot with fading erythema not warm to touch noted. ASSESSMENT: 1. Crust to toes 1 and 2 and 3 of right foot. 2. Category 3 skin tear to medial 2nd toe of left foot. TREATMENT PLAN: The wounds were washed with warm soapy water, rinsed, and patted dry. To the right toe crusts, these were painted with Betadine. We will continue to do so daily. To the left 2nd toe skin tear, this was washed with warm soapy water, rinsed, and patted dry. A small Mepilex border was placed and should continue to be changed twice a week and p.r.n. drainage. After he is discharged from the hospital, [facility]. Thank you for this referral. Wound Care will follow him while he is inpatient. Maureen Solis APRN/ mars JOB #: [id number] CC: David Richard, Attending Physician David Richard, Family Physician
--- NOTE | ~2016-10-25 | ECH ---
Transthoracic Echocardiography Report (TTE) Demographics Patient Name KIANA PUGH Date of Study 10/26/2016 Nancy Patient Number [id number] Visit Number [id number] Date of 1945 Room Number 310 Accession Number [id number] Gender Male Age 71 year(s) Referring Jose Manuel Cruz Community Liaison Officer Rosanne Bowling Physician RDCS Physician Interpreting Lety Ruiz Violin Maker Hand Physician MD Supervising Ordering Physician Jose Manuel Cruz MD/MLP Nurse Stress Furniture Polisher Conclusions Summary Technically adequate exam. The estimated left ventricular ejection fraction is 55%. The left atrium is severely dilated by LA volume index measurement. The right atrium is moderately dilated. There is mild aortic regurgitation by color Doppler. Mild tricuspid regurgitation by color Doppler. There is mild pulmonary hypertension. The pulmonary pressure (RVSP) is 36 mmHg. Procedure Type of Study TTE procedure:Echo Complete SF. Procedure Date Date: 10/26/2016 Start: 10:25 AM Technical Quality: Adequate visualization Indications:Atrial fibrillation, Diabetes, Coronary artery disease, Hypertension and Congestive heart failure. Appropriate Use Criteria: 9 Height: 70 inches Weight: 238 pounds BSA: 2.25 m Rhythm: Atrial fibrillation HR: 74 bpm BP: 117/67 mmHg M-Mode/2D Measurements LV Diastolic Dimension: 5.34 cm LV Systolic Dimension: 4.01 cm LV Septum Diastolic: 0.96 cm LV PW Diastolic: 0.72 cm AO Root Dimension: 2.99 cm Cardiac Output: 3.78 l/min LA Dimension: 4.31 cm Cardiac Index: 1.68 l/min*m RV Diastolic Dimension: 4.53 cm LA volume index: 56 ml/m LVOT: 2.09 cm LVOT VTI: 14.88 cm RV Base: 3.7 cm LV Stroke volume: 51.02 ml RV Mid: 2.7 cm LV Stroke volume index: 22.68 ml/m TAPSE: 1.7 cm TDI-S': 12 cm/s Doppler Measurements AV Peak Velocity: 1.5 m/s MV Peak E-Wave: 1.23 m/s AV Peak Gradient: 9 mmHg AV Mean Gradient: 5.9 mmHg MV P1/2t: 51.5 msec LVOT Peak Velocity: 0.8 m/s AV Area (Continuity):1.67 cm AV P1/2t: 386.8 msec MV Area (PHT): 4.28 cm TR Velocity:2.79 m/s PV Peak Velocity: 0.78 m/s TR Gradient:31.14 mmHg PV Peak Gradient: 2.41 mmHg Estimated RAP:5 mmHg Estimated PASP: 36.14 mmHg Estimated RVSP: 36 mmHg E' Septal Velocity: 0.13 m/s E' Lateral Velocity: 0.12 m/s RA Area: 24.4 cm Findings Left Ventricle Normal left ventricle size and function. Diastolic function indeterminate due to patient's arrhythmia. Right Ventricle Normal right ventricle structure and function. Left Atrium The left atrium is severely dilated by LA volume index measurement. Right Atrium The right atrium is moderately dilated. Mitral Valve Normal mitral valve structure and function. Trivial mitral regurgitation by color Doppler. Aortic Valve The aortic valve is mildly sclerotic. There is mild aortic regurgitation by color Doppler. Tricuspid Valve Normal tricuspid valve structure and function. Mild tricuspid regurgitation by color Doppler. There is mild pulmonary hypertension. The pulmonary pressure (RVSP) is 36 mmHg. Pulmonic Valve Normal pulmonic valve structure and function. Trivial pulmonic valve regurgitation by color Doppler. Pericardial Effusion No evidence of pericardial effusion. Miscellaneous Visualized portions of the aortic root and ascending aorta appear normal in size. Pleural Effusion No evidence of pleural effusion. Contractility Score LV regional wall motion:(0-Non visualized 1-Normal 2-Hypokinesis 3-Akinesis 4-Dyskinesis 5-Aneurysm) Signature
[~2016-10-25 10:14] MED LIST changes: +GLUTOSE 1537.5 GM PO
--- NOTE | 2016-10-28 08:14 | CO ---
ADMIT: 10/25/2016 RM/LOC: 310 [facility] MR#: [id number] [address] [facility] [address] [place], [place] [address] [place] [address] Consultation SEX: M AGE: 71 : 1945 DATE OF CONSULTATION: 10/25/2016 ATTENDING PHYSICIAN: David Richard CONSULTING PHYSICIAN: Bart Winchester MD, [facility] HISTORY OF PRESENT ILLNESS: The patient, Francis, is a 71-year-old male who presents here for respiratory distress. The patient has a history of CHF and COPD. He was recently discharged from the hospital here on 4 to 5 L of oxygen. The patient is currently on BiPAP in the ICU. He was placed on BiPAP. He has been living in a group home facility at the [facility]. He has no chest pain. He has no fevers, chills, or night sweats. He is unable to give much of a history at the current time given that he is on BiPAP. He has altered mental status. He is a previous smoker. He was recently discharged on 4 to 5 L of oxygen. He is currently on BiPAP and states that he is feeling somewhat better at the current time. He has no other new complaints at the current time. He was started on Zosyn and Levaquin. PAST MEDICAL HISTORY: Tinnitus, coronary artery disease, diabetes mellitus, posttraumatic stress disorder. He also has insomnia, tremor, atrial fibrillation, actinic keratosis, and anxiety disorder. CURRENT MEDICATIONS: Medications on admission were cholecalciferol, cyanocobalamin, doxepin, Pepcid, ferrous gluconate, finasteride, metoprolol, multivitamin, potassium chloride, prednisone 10 mg a day, simvastatin, albuterol, Symbicort, and fluticasone nasal spray. ALLERGIES: HE HAS NO KNOWN DRUG ALLERGIES. FAMILY HISTORY: Otherwise unobtainable at the current time. SOCIAL HISTORY: Otherwise unobtainable at the current time. REVIEW OF SYSTEMS: GENERAL: He is able to give some history to the BiPAP. HEENT: He denies any visual problems. He does have tinnitus. He denies any sinus problems or any nosebleeds. CARDIAC AND PULMONARY: Other than mentioned above is negative. He denies any chest pain, any orthopnea, or any PND. GI: No nausea, vomiting, diarrhea, constipation, melena, or hematochezia. : No dysuria or pyuria. MUSCULOSKELETAL: No arthralgias or arthritis. SKIN: He has noted no new rashes. PHYSICAL EXAMINATION: VITAL SIGNS: Temperature is 96.2, pulse 79, respirations 22, blood pressure 141/53. He is on 4 L BiPAP of 20/10. GENERAL: He is awake, is somnolent, but he is arousable and will speak. HEENT: Sclerae nonicteric. Throat is not erythematous. NECK: Supple. Trachea is midline. No bruits. LUNGS: Bilateral crackles. No wheezes. ADMIT: 10/25/2016 RM/LOC: 310 [facility] MR#: [id number] [address] [place] [id number] [place] [address] Consultation SEX: M AGE: 71 : 1945 CV: Rate is irregularly regular without murmurs, rubs, or gallops. ABDOMEN: Active bowel sounds. Soft and nontender. EXTREMITIES: 2+ edema. SKIN: Without acute lesions. NEURO: Moving all extremities. LABORATORY DATA: ABGs earlier pH is 7.29, pCO2 of 96, PO2 of 68. This was prior to BiPAP, current ones are pending. Sodium 140, potassium 4.4, chloride 96, CO2 of 38, creatinine 0.8. White count 8.3, hemoglobin 11.5, platelets are 158, MCV is 105. No left shift. Procalcitonin is less than 0.05. IMAGING: Chest x-ray shows pulmonary edema. IMPRESSION: 1. Chronic obstructive pulmonary disease. 2. Congestive heart failure. RECOMMENDATIONS AND DISCUSSION: Patient with increased fluid and increased chest x-ray pulmonary edema consistent with this along with a COPD. We will place him on steroids, frequent bronchodilators. No evidence of any infection. We would hold on the antibiotics at the current time. We will repeat blood gases. He has been started on Zosyn, so I will wait for his cultures to come back, but I do not feel that he has any particular infection. I think mostly diuresis and BiPAP is required at this time. Recommend DVT prophylaxis. Thank you for the consultation. Bart Winchester MD, FCCP/ modl JOB #: [id number] CC: David Richard, Attending Physician David Richard, Family Physician
--- NOTE | 2016-10-29 17:07 | ER ---
ADMIT: 10/25/2016 RM/LOC: 310 [facility] MR#: [id number] [address] [facility] [address] [place], [place] [address] [place] [address] Emergency Room Report SEX: M AGE: 71 : 1945 DATE: 10/25/2016 ADDENDUM: A 71-year-old white male, but does go by the first name Samantha, coming in with shortness breath. Septic orders were initiated but they have no signs of sepsis at this time. This is COPD and congestive heart failure. He is retaining with a pCO2 of 92 to 96. At this time, we did put him on BiPAP. He was just here about a month ago for the same thing where they put him on BiPAP, so this is not a new treatment for him. [facility] We had given him 20 of Decadron IV as well as 40 of Lasix IV. He does have a history of heart failure. At this time, we just covered him with Zosyn and Levaquin because of his underlying lung disease, though we did not see any signs of pneumonia at this time. I spoke with Dr. Richard, he will admit. CONDITION ON DISCHARGE: Critical, but stable at this time. Jamar Carrington MD/ modl JOB #: [id number] CC: David Richard MD, Attending Physician David Richard MD, Family Physician
--- NOTE | 2016-11-01 08:53 | CO ---
ADMIT: 10/25/2016 RM/LOC: 310 [facility] MR#: [id number] [address] [facility] [address] [place], [place] [address] [place] [address] Consultation SEX: M AGE: 71 : 1945 DATE OF CONSULTATION: 10/26/2016 ATTENDING PHYSICIAN: David Richard CONSULTING PHYSICIAN: Tiffany Jackman, RENEWABLE ENERGY DIVISION MANAGER TIME: 1115 hours. TIME OUT: 1150 hours. REASON FOR CONSULTATION: Supportive care consultation was requested by Dr. Richard for discussion of goals for care. HISTORY OF PRESENT ILLNESS: Samantha is a 71-year-old patient, who actually goes by the name Randolph. He has a history of COPD and heart failure. He has had multiple hospital stays over the course of the past month or two one for his COPD exacerbation, and second for pneumonia. He has been living at the [facility] in their nursing facility. He was readmitted to the hospital last evening with altered mental status and was found to have COPD exacerbation with respiratory failure. Initially, he was on BiPAP therapy; however, he is off that now and on oxygen per nasal cannula. Due to his complexities, supportive care consultation was requested to discuss goals for care. In terms of advanced directives, the patient states that he does have a living will and durable bmbpu-qc-vabvgsty for healthcare which he has completed. He states that the [facility] has these documents on file. His daughter Merry Sullivan whose phone #[phone] and [phone] is the patient's healthcare mhujw-[id number]. In terms of code status, the patient is a full code. Symptomatically, the patient denies complaints. He does appear slightly weak and debilitated. Other than that he denies complaints currently. PAST MEDICAL HISTORY: 1. COPD. 2. Heart failure. 3. Coronary artery disease. 4. Diabetes mellitus type 2. 5. Posttraumatic stress disorder. 6. Insomnia. 7. Tremor. 8. Atrial fibrillation. 9. Anxiety disorder. 10.Actinic keratosis. ALLERGIES: THE PATIENT HAS NO KNOWN MEDICATION ALLERGIES. CURRENT MEDICATIONS: Please see the patient's MAR for specific routes and dosages. His current medications are as follows. ADMIT: 10/25/2016 RM/LOC: 310 [facility] MR#: [id number] [address] [address] [facility] [place] [address] Consultation SEX: M AGE: 71 : 1945 1. Debrox. 2. Levaquin. 3. Lovenox. 4. Feosol. 5. Potassium chloride. 6. [place]-3. 7. Multivitamin. 8. Flonase. 9. Proscar. 10.Vitamin B12. 11.Vitamin D. 12.Zyrtec. 13.Aspirin. 14.Uroxatral. 15.Synthroid. 16.Glutose. 17.Glucagon. 18.D5 normal saline. 19.D50. 20.NovoLog. 21.Colace. 22.Tessalon Perles. 23.Zocor. 24.Minipress. 25.Lopressor. 26.Pepcid. 27.Sinequan. 28.Zosyn. 29.Glucotrol. 30.Dulera. 31.Xanax. 32.Hydrocodone. 33.Proventil. 34.Solu-Medrol. 35.Xopenex. 36.DuoNeb. 37.Tylenol. 38.Nitrostat. SOCIAL HISTORY: The patient is originally from [place]. He has most recently been living at the [facility]. Before that he was living at home alone. He has a long smoking history. He does not use alcohol. FUNCTIONAL REVIEW: Prior to his hospital stay, it sounds like he could get around with some assistance. His palliative performance scale prior to admission was around 50% to 60%. Currently, his PPS remains around 50% to 60% as well. ADMIT: 10/25/2016 RM/LOC: 310 [facility] MR#: [id number] [address] [address] [address] Consultation SEX: M AGE: 71 : 1945 REVIEW OF SYSTEMS: A 10-point review of systems was completed and other than those pertinent positives and negatives mentioned in HPI, it is negative. PHYSICAL EXAMINATION: GENERAL: The patient is examined in the chair. He is in no acute distress. VITAL SIGNS: Temperature 98.2, pulse 99, respirations 20, blood pressure 140/83, oxygen 96% on 4 L per nasal cannula. HEENT: Head is normocephalic. Pupils are equal, round, and reactive with a diameter of 3 mm bilaterally. Oral mucosa pink and moist. Fair dentition. NECK: Supple. RESPIRATORY: Respirations are equal, nonlabored at rest. LUNGS: Diminished in the bases bilaterally. CARDIOVASCULAR: Irregularly irregular without murmurs, rubs, or gallops. 1+ bilateral lower extremity edema. GASTROINTESTINAL: Soft, nontender. Bowel sounds are positive. GENITOURINARY: The patient states that he is voiding well. MUSCULOSKELETAL: Generalized weakness. No obvious joint deformities. INTEGUMENTARY: Skin turgor is fair. No rashes or wounds noted. NEUROLOGIC: Alert and oriented x3. He will follow commands. PSYCHIATRIC: Calm and cooperative. He will become slightly agitated at times, but overall is cooperative. DIAGNOSTIC DATA: Sodium 139, potassium 4.0, BUN 17, creatinine 1.1, total protein 5.9, albumin 2.8. WBC is 9.2, hemoglobin 12.1, hematocrit 38.6, and platelets are 182. IMPRESSION: 1. Debility. 2. Fatigue. 3. Moderate protein-calorie malnutrition. 4. Severe chronic obstructive pulmonary disease with acute exacerbation. 5. Chronic heart failure. 6. Respiratory failure. 7. Diabetes mellitus type 2. 8. Atrial fibrillation. 9. Coronary artery disease. 10.Palliative care. 11.The patient is a full code. PLAN OF TREATMENT: 1. I was able to meet with the patient as well as his daughter at the bedside. We reviewed his overall status and goals for the time ahead. He recognized that the past few months had been rough, but his goal was ongoing aggressive care with the hopes of improvement. He states that he wants "5 to 6 more years." He does agree to ongoing discussions in the time ahead pending his status. 2. In terms of code status. We did review his wishes regarding this and he is very adamant about wanting to be a full code status. He states that ADMIT: 10/25/2016 RM/LOC: 310 [facility] MR#: [id number] [address] [place] [id number] [address] Consultation SEX: M AGE: 71 : 1945 he would not want to "live as a vegetable" and states that his daughter is prepared to make decisions if this ever happens. 3. In terms of advanced directives, he states that the [facility] does have a copy of his living will and healthcare libcj-yn-ujnmncgd paperwork. I will attempt to reach them today or tomorrow to get a copy for our records as well. We would like to thank Dr. Richard for the invitation to participate in this patient's care. Total consultation time was 35 minutes from 1115 hours to 1150 hours with 20 minutes from 1120 hours to 1140 hours spent [id number] with the patient discussing goals for care and providing counseling and support. We will be happy to follow along in the care of this very interesting patient. Tiffany Jackman APRN/ mars JOB #: [id number] CC: David Richard, Attending Physician David Richard, Family Physician
[2016-11-02] MEDS ORDERED: FEOSOL-DPS325 MG PO (15:08)
[2016-11-02] MEDS ORDERED: UROXATRAL10 MG PO (15:13)
[2016-11-02] MEDS ORDERED: LOVENOX DP40 MG/0.4 SQ (15:16)
[2016-11-02] MEDS ORDERED: LEVEMIR100 UNIT/1 SQ (15:16)
[2016-11-02] MEDS ORDERED: NOVOLOG100 UNIT/2 SQ (15:18)
[2016-11-02] MEDS ORDERED: GLUCAGON HCL1 MG IM (15:22)
--- NOTE | 2016-11-08 14:03 | CO ---
ADMIT: 10/25/2016 RM/LOC: 404 [facility] MR#: [id number] [address] [facility] [address] [place] [phone] KIANA PUGH [facility] [place] [address] Consultation SEX: M AGE: 71 : 1945 DATE OF CONSULTATION: 10/28/2016 ATTENDING PHYSICIAN: David Richard CONSULTING PHYSICIAN: Baltazar Davidson MD REASON FOR CONSULT: Recurrent admissions for COPD and heart failure. HISTORY OF PRESENT ILLNESS: Randolph is a 71-year-old, who gets his usual care through the [place]. He was admitted to [facility] 4 days ago. He was recently hospitalized from September 23 until September 30. The patient tells me he was at home in [place] but somehow went to the [place] and was transferred to the emergency room with dyspnea and he said his main problem was profound confusion, disorientation, and some hallucinations. His pCO2 was 92 with the PO2 in the 60s, was obviously at significant CO2 retention. He did not respond very well to nebulizer treatments or IV steroids or Lasix. Ultimately, he was placed on BiPAP, which helped his improvement significantly. Initially, he had a good diuresis but now he is retaining more fluid. Dr. Richard asked us to see him today because of recurrent fluid retention and component of heart failure. His ejection fraction is preserved. He has chronic atrial fibrillation. Although, he says there is a history of coronary artery disease on his chart, I see there has never been an intervention undertaken. His pulmonary pressures were gvbbou-px-qdfflgxina elevated. PAST MEDICAL HISTORY: ILLNESSES: Include hypothyroidism. In his chart, there is a gender identity disorder, chronic respiratory failure with severe COPD, permanent atrial fibrillation, hypertension, chronic depression, posttraumatic stress disorder, hyperlipidemia, chronic back pain, and BPH. ALLERGIES: NO KNOWN MEDICAL ALLERGIES. HOME MEDICATIONS: Include: 1. Tylenol. 2. Albuterol inhaler. 3. Hydrocodone q.4 hours as needed. 4. DuoNeb inhaler. 5. Alprazolam p.r.n. 6. Ascorbic acid 500 daily. 7. Aspirin 325 daily. 8. Symbicort 160/4.5 two puffs b.i.d. 9. Zyrtec 10 daily. 10.Vitamin D 2000 units daily. 11.Doxepin 25 daily. 12.Famotidine 20 at bedtime. 13.Finasteride 5 daily. 14.Fluticasone nasal spray. 15.Lasix 20 daily. ADMIT: 10/25/2016 RM/LOC: 404 [facility] MR#: [id number] [address] [place] [phone] [address] Consultation SEX: M AGE: 71 : 1945 16.Glipizide 2.5 b.i.d. 17.Levothyroxine 88 mcg daily. 18.Metoprolol 125 in the morning and 100 at night. 19.Multivitamin daily. 20.Nitroglycerin p.r.n. 21.Fish oil 2 g daily. 22.Potassium chloride 10 mEq daily. 23.Prazosin 6 mg at bedtime. 24.Simvastatin 40 at bedtime. 25.Docusate b.i.d. 26.Iron gluconate 324 daily. FAMILY HISTORY: His mother of cancer of unknown primary. His father had diabetes and of complications thereof. No premature family history of coronary artery disease. 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 He lives in [place]. He has been 4 times. He has several children. Apparently, he has over 100-pack year history of smoking. He says he has not smoked over the past year. Denies any active alcohol use. He does not smoke marijuana but he says in the past, he has enjoyed baked goods with marijuana. He is a [place] . REVIEW OF SYSTEMS: Full 10 point or 12-point review of systems was performed and noncontributory other than that mentioned in the HPI. PHYSICAL EXAMINATION: VITAL SIGNS: Blood pressure 120/75, pulse is in the 70s. Irregular respirations 18, he is afebrile. GENERAL: He is alert, he has poor color. He is oriented in no acute distress. Eyes, there are lateral deviation of the left eye. Otherwise, sclerae clear. No xanthelasmas. ENT: Oral mucosa is pink and moist. No jugular venous distention or carotid bruits. SKIN: Pale and multiple tattoos. Otherwise, pink, warm and dry. NECK: There is positive JVD. I do not hear any carotid bruits but is difficult to hear over his breath sounds and oxygen therapy. CHEST: There are diffuse wheezes with very end expiratory wheezes with poor air movement throughout. Symmetric respirations. No rhonchi. HEART: Distantly irregularly irregular. No significant murmurs, rubs, or there is a systolic murmur along the left sternal border. No radiation to the apex or up to the base. ABDOMEN: Obese, small hernia, soft. Bowel sounds are active. No organomegaly is noted. EXTREMITIES: There is pitting edema of his lower extremities, extending into his posterior thighs. PSYCHIATRIC: Alert and oriented. Mood and affect are appropriate. MUSCULOSKELETAL: Gait is normal. ADMIT: 10/25/2016 RM/LOC: 404 [facility] MR#: [id number] [facility] [address] [address] KIANA PUGH [address] [place] [address] Consultation SEX: M AGE: 71 : 1945 LABORATORY DATA: Sodium was 139, potassium was 4.0, his CO2 was 39, glucose 167, creatinine is 0.9. Cardiac enzymes were negative. His proBNP was 1774. White count 9.1, hemoglobin 11.3, platelet count 181,000. Chest x-ray has some hyperinflation, initially suggested some pulmonary vascular congestion. His echo shows preserved ejection fraction and underlying atrial fibrillation with severe left atrial enlargement. There was mild aortic insufficiency and zfzy-kt-wgmubhdv tricuspid regurgitation. Pulmonary pressure is estimated at 35 mmHg. IMPRESSION: 1. Acute respiratory failure. 2. Underlying chronic obstructive pulmonary disease. 3. Heart failure with preserved ejection fraction. 4. Permanent atrial fibrillation. 5. Diabetes. RECOMMENDATIONS: 1. I agree that there is a component of volume expansion which is multifactorial. I wonder if he has a component of sleep apnea with his chronic lung disease and I am concerned that noncompliance is probably playing a role. In addition to this, I just do not think he has enough baseline Lasix dose to keep his fluid off. He was only taking 20 mg a day at home. He needs ongoing and aggressive IV diuresis here in the hospital. Once we think we establish a dry weight, then I would establish a baseline dose of Lasix which will hopefully keep him more euvolemic. Probably, he need a dose such as 40 mg of Lasix b.i.d. 2. For his atrial fibrillation, we will continue with the rate control and chronic anticoagulation strategy. To simplify his regimen. I am going to change his Lopressor dosing to just to 100 b.i.d. 3. In addition to his respiratory failure and confusion, I would be suspicious that some of his home hydrocodone and benzodiazepines are probably contributing to an already complicated clinical picture. Baltazar Davidson MD/ mars JOB #: [id number] CC: David Richard, Attending Physician David Richard, Family Physician
--- NOTE | 2016-11-12 13:58 | HP ---
ADMIT: 10/25/2016 RM/LOC: 404 [facility] MR#: [id number] 26[address] [facility] [address] [place] [id number] FABRICE [place] [address] History and Physical SEX: M AGE: 71 : 1945 DATE OF SERVICE: CHIEF COMPLAINT: Severe shortness of breath, marked dyspnea, and hypoxia. CLINICAL HISTORY: The patient is a 71-year-old male, [facility] patient, who is admitted to [facility] through the ER via the city call system. The patient has a history of severe COPD with hypoxia and CO2 retention. He has a history of chronic congestive heart failure. He has had 2 recent hospitalizations here at [facility] being admitted on 09/23/2016 and hospitalized until 09/30/2016. The patient following his first admission in September went home even though he did not feel strong enough to take care of himself. He was at home for about a week when he was readmitted on 10/07/2016. He then spent another 4 days in the hospital with acute respiratory failure. Following that admission, he did go to the [facility], and he has been at the [facility]entiary unit for the last 2 weeks. He was transferred to the ER from the [facility] because of severe shortness of breath, marked worsening of his dyspnea with some confusion and disorientation. He was evaluated in our ER with initially initiated sepsis orders. However, he did not meet sepsis criteria. His blood gases done in the ER showed a pCO2 of 92 and a PO2 in the 60s. He had significant CO2 retention. He was having very labored respirations. He did not respond to nebulizer treatments. He was given IV steroid and IV Lasix with minimal improvement. Ultimately, he was placed on BiPAP in the ER, which improved his oxygenation and helped his acute dyspnea. Due to his daxut-[id number] respiratory failure, he was admitted to the ICU for continued BiPAP therapy. It was felt that majority of what we were seeing on his initial chest x-ray was probably congestive heart failure superimposed on his COPD. However, there was some concern for underlying pneumonia and for that reason, he was also started on IV antibiotic therapy. Therapy initiated in the ER with IV Levaquin and IV Zosyn, admitted to the ICU with plans to obtain urgent Pulmonary consult in case his condition deteriorates further and he needs ventilator management. Past medical history is obtained from old records. It is difficult for him to talk with the BiPAP on plus he still continues to be somewhat confused presumably due to CO2 narcosis. As noted, he was admitted on 09/23/2016 and hospitalized until 09/30/2016, readmitted on 10/07/2016 and discharged on 10/11/2016. He was hospitalized here at [facility] in November of 2009 with a COPD exacerbation. His medical problems include. 1. Chronic respiratory failure. 2. Severe chronic obstructive pulmonary disease. 3. Chronic atrial fibrillation. 4. Coronary artery disease. 5. Tobacco abuse disorder. 6. Hypertension. 7. Chronic depression. 8. Posttraumatic stress disorder. 9. Hyperlipidemia. 10.Chronic back pain. 11.Benign prostatic hypertrophy. ADMIT: 10/25/2016 RM/LOC: 404 [facility] MR#: [id number] [address] [place] [id number] J[address]NAKIANA Duran [address] [address] History and Physical SEX: M AGE: 71 : 1945 12.Hypothyroidism. 13.Gender identity disorder. CURRENT MEDICATIONS: Include: 1. Acetaminophen 650 mg every 4 hours p.r.n., minor discomfort. 2. Albuterol metered dose inhaler, two puffs q.2 to 3 hours p.r.n. shortness of breath. 3. Lortab 10/325, one every 4 hours for pain. 4. DuoNeb via twin jet nebulizer q.i.d. 5. Alfuzosin SA 10 mg one daily. 6. Xanax 1 mg every 6 hours p.r.n. anxiety. 7. Ascorbic acid 500 mg daily. 8. ASA 325 mg one daily. 9. Symbicort 160/4.5, 2 puffs b.i.d. 10.Zyrtec 10 mg daily. 11.Vitamin D 2000 units daily. 12.Vitamin B12 100 mcg daily. 13.Doxepin 25 mg at bedtime. 14.Pepcid 20 mg at bedtime. 15.Finasteride 5 mg daily. 16.Fluticasone 50 mcg two sprays each nostril daily. 17.Lasix 20 mg daily. 18.Glipizide 2.5 mg b.i.d. 19.Levothyroxine 88 mcg daily. 20.Metoprolol 125 mg in the a.m. and 100 mg in the p.m. 21.Multivitamin 1 daily. 22.Nitrostat sublingual p.r.n. 23.Fish oil 2000 mg daily. 24.Potassium 10 mEq daily. 25.Prazosin 6 mg at bedtime. 26.Simvastatin 40 mg at bedtime. 27.Docusate sodium 200 mg twice a day. 28.Tessalon Perles 100 mg twice a day. 29.Ferrous sulfate 324 mg daily. 30.Cerumenex 2 drops both ears once a week. ALLERGIES: NO KNOWN ALLERGIES. FAMILY HISTORY: No significant family history reported. SOCIAL HISTORY: The patient up until his last admission, had been living in his home in [place]. He has always used the [facility] as his primary care provider. He is a [place] vet. He has a long history of smoking. He smoked for 50+ years having accumulated greater than 834-[id number] history, typically smokes 1 to 2 packs per day. He denies any alcohol use. He currently lives alone in his own home. Prior to his last admission, had been living alone in his own home in [place]. He is retired. He is a [employer] from the ADMIT: 10/25/2016 RM/LOC: 404 [facility] MR#: [id number] [address] [facility] [address] [place], [place] [phone] [place] [address] History and Physical SEX: M AGE: 71 : 1945 [place]. REVIEW OF SYSTEMS: Difficult to get an accurate review of systems from the patient due to his BiPAP therapy and mild confusion. HEENT: No recent change in eye, ear, nose, or throat. He denies any visual problems. Does complain of tinnitus and hearing impairment. He has had no recent upper respiratory infections. PULMONARY: As mentioned in clinical history with history of severe COPD, chronic respiratory failure. He is having increased cough, minimal sputum production. No hemoptysis. No pleuritic chest pain. CARDIAC: History of coronary artery disease. History of past angina. History of ischemic SA node dysfunction and atrial fibrillation. GASTROINTESTINAL: No nausea, vomiting, or diarrhea. No constipation. No melena or hematochezia. GENITOURINARY: History of BPH. Denies dysuria. MUSCULOSKELETAL: Some generalized arthritic discomfort. No recent falls or injuries. NEUROLOGIC: No history of strokes, seizures, or TIAs. ENDOCRINE: He is a type 2 diabetic. Also, history of hypothyroidism. INTEGUMENT: No new skin rashes or worrisome skin lesions. PSYCHIATRIC: History of depression. History of PTSD. History of chronic anxiety. Follows for his psychiatric medications through the [facility]. PHYSICAL EXAMINATION: VITAL SIGNS: At the time of admission, temperature is 96.2, pulse is 80, respirations 16, blood pressure 113/71, O2 saturation is 97% with BiPAP on. His BiPAP is currently being used with 12 L of O2. Current weight is 243 pounds. GENERAL: The patient is a 71-year-old male. He will arouse, attempts to talk, but he is somnolent. He will speak and answers some questions, but difficult to communicate with the BiPAP on. HEENT: His ears are clear. Hearing is diminished. Pupils are equal and reactive. Sclerae nonicteric. Conjunctivae noninflamed. Nose and throat are unremarkable. Oropharynx is normal. Gag reflex is intact. Throat is noninflamed. NECK: Supple. Trachea is midline. No carotid bruits. No neck masses. No cervical adenopathy. LUNGS: Noted to have bibasilar crackles. Diminished air movement bilaterally. He does have crackles in both bases. No wheezes. No dullness to percussion. HEART: Noted to be irregular. It appears to be irregularly irregular. Atrial fib was rate controlled. No murmurs. ABDOMEN: Soft, somewhat protuberant, and obese. Nontender. Bowel sounds are present in all 4 quadrants. I can appreciate no hernias. No abdominal masses. GENITALIA: Normal male. EXTREMITIES: Noted to have 2+ pedal and ankle edema, 2+ pretibial edema, changes of mild venous insufficiency. No calf tenderness. No areas of skin ADMIT: 10/25/2016 RM/LOC: 404 [facility] MR#: [id number] [address] [place] [id number] [address] History and Physical SEX: M AGE: 71 : 1945 breakdown. Skin is noted to have no significant rashes. No pressure ulcers. NEUROLOGICAL: He can move all extremities. He is somnolent, but he is arousable. I cannot appreciate any focal deficits. MENTAL STATUS: Difficult to assess due to his somnolence. LABORATORY DATA: His pre-admission labs revealed his white count to be 8200, hemoglobin 11.5, hematocrit 39. His lactic acid was normal at 1.1, procalcitonin was less than 0.05. Sodium was 140, potassium 4.0, BUN 13, creatinine 0.8. His blood sugar was high at 214. On his blood gases; his pH is 7.28, pCO2 was 96, PO2 of 68. Blood gases were prior to starting him on BiPAP. IMAGING: Chest x-ray shows cardiomegaly with bilateral pulmonary edema, changes of congestive heart failure, possibility of superimposed pneumonia as well. IMPRESSION AT THE TIME OF ADMISSION: 1. Xsqbb-pr-xwmvljz respiratory failure. 2. Chronic respiratory failure with CO2 retention. 3. Severe chronic obstructive pulmonary disease. 4. Chronic diastolic congestive heart failure. 5. Atherosclerotic coronary vascular disease. 6. Chronic atrial fibrillation. 7. Type 2 diabetes. 8. Posttraumatic stress disorder with chronic anxiety. 9. Chronic pain syndrome. 10.Hypertension. 11.Hyperlipidemia. 12.Hypothyroidism. 13.Marked generalized weakness and debility due to his pulmonary disease. PLAN: The patient has been admitted to the ICU for continued BiPAP therapy. We will ask Pulmonary Medicine to see him in consult. If his condition deteriorates, the patient does wish to be a full code and when asked, he agreed with intubation if necessary and being placed on a ventilator. We will go ahead and cover him for any possible pneumonia or respiratory infection with IV Zosyn and IV Levaquin. We will diurese with IV Lasix and get further recommendations from Dr. Winchester, Pulmonary Medicine. David Richard MD/ mars JOB #: [id number] CC: David Richard, Attending Physician David Richard, Family Physician
--- NOTE | 2016-12-01 09:02 | DS ---
ADMIT: 10/25/2016 RM/LOC: 404 [facility] MR#: [id number] [address] [facility] [address] [place] [phone] ROWENAHAILEY [place] [address] General Discharge Summary SEX: M AGE: 71 : 1945 ADMISSION DATE: 10/25/2016 DISCHARGE DATE: 11/01/2016 This is a [facility] patient who was admitted per [facility] Call. ADMITTING DIAGNOSIS: As per history and physical. FINAL DIAGNOSES: 1. Acute on chronic congestive heart failure. 2. Acute on chronic respiratory failure with hypoxia. 3. Chronic atrial fibrillation. 4. Severe chronic obstructive pulmonary disease with acute exacerbation. 5. Hypothyroidism. 6. Major depressive disorder. 7. Pulmonary hypertension with tricuspid insufficiency. 8. Type 2 diabetes. 9. Posttraumatic stress disorder. 10.Obstructive sleep apnea. 11.Hyperlipidemia. 12.Chronic pain syndrome. 13.Benign prostatic hypertrophy. 14.Chronic anxiety disorder. 15.Atherosclerotic coronary vascular disease. 16.Insomnia. COMPLICATIONS: None. OPERATIONS: None. CLINICAL HISTORY: The patient is a 71-year-old, white male, [facility] patient, who was admitted to [facility] per [facility] Call, admitted to the ICU after being seen in the ER with severe shortness of breath. The patient is currently at the [facility] U[facility] Unit here in [place]. He is recovering from 2 recent hospitalizations with similar acute respiratory failure. He has a history of severe COPD with chronic respiratory failure with both hypoxia and hypercarbia. He had recently been hospitalized here at [facility] on 2 occasions from 10/07/2016 through 10/11/2016, most recently from 09/23/2016 through 09/30/2016. Following his last discharge, he was dismissed to the alf unit at the [facility] where he has been for the last 25 days. However, on the day of admission, he was having marked increased shortness of breath, marked dyspnea with mental status changes thought to be related to his hypoxia and hypercarbia. He was transferred to the ER where he was evaluated. His PO2 in the ER was 68, pCO2 was 96. In view of his acute on chronic respiratory failure with significant CO2 retention, the patient was admitted to the ICU with planned urgent Pulmonary Critical Care consult. For further details of his clinical history as well as past medical history and pertinent findings on physical exam, please see dictated history and physical. Please also see Dr. Winchester's dictated Pulmonary consultation. I also refer you to Dr. Baltazar Davidson's dictated ADMIT: 10/25/2016 RM/LOC: 404 [facility] MR#: [id number] [address] [place] [id number] [place] [address] General Discharge Summary SEX: M AGE: 71 : 1945 [address] consultation [address] Hernandez's Palliative Care consult. LABORATORY AND X-RAY SUMMARY FROM THIS ADMISSION: For complete details of lab, please see cumulative laboratory summary included in the chart. Brief synopsis of lab; initial CBC showed a white count of 8200, hemoglobin of 11.5, hematocrit 39. Serial CBCs did not really show much significant change. At discharge, white count was 9300, hemoglobin was 11.3, hematocrit 38.1. Coag studies on admission were normal. His INR was 1.03. Urinalysis on admission was clear. Chemistry studies were monitored daily because of his aggressive diuresis for his congestive heart failure. On admission, sodium was 140, potassium 4.4, BUN was 13, creatinine 0.8. Admitting blood sugar was 214. As noted, chemistry studies were monitored daily because of his diuresis. At discharge, his sodium was 137, potassium 4.1, BUN was 23 with a creatinine of 0.8. The patient's calculated GFR ranged from 86 to 91 during this admission. On admission, his proBNP was elevated at 1774. Fingerstick blood sugars were monitored q.i.d. because of his type 2 diabetes. Blood sugars ranged from a low of 102 to a high of 263 during this hospitalization. Blood gases done in the ER showed a pH of 7.28, PO2 of 68, pCO2 of 96. The patient continued to have significant CO2 retention throughout the hospitalization. His blood gases on 10/26/2016 showed pCO2 of 61, PO2 of 79. Blood culture drawn on admission showed no growth. Urine culture showed no growth. Blood type was noted to be A positive with negative antibody screen. X-ray studies included a CT of his head because of his decreased level of consciousness in the ER. CT of the head was performed which showed mild chronic small vessel ischemic changes. His initial chest x-ray showed cardiomegaly with interstitial vascular prominence. Subsequent chest x-ray showed cardiomegaly with interstitial edema with slowly progressive improvement over the first several days of his hospital stay. X-ray on 10/31/2016, showed some left lower lobe atelectasis or early pneumonia. His echocardiogram done during this hospitalization showed an EF of 55%. His left atrium is severely dilated. Right atrium is moderately dilated. He has significant pulmonary hypertension, mild aortic regurgitation, mild tricuspid regurgitation. His EKGs during this hospitalization showed atrial fibrillation with diffuse nonspecific T-wave changes. HOSPITAL COURSE: The patient was admitted to the ICU. BiPAP that was started in the ER was continued in the ICU. He needed the BiPAP support. Dr. Winchester was consulted and assisted with managing his acute on chronic respiratory failure. He was continued on BiPAP over the first 36 hours of his hospital stay. He was diuresed with IV Lasix. He was treated with high-dose steroids as well as IV antibiotic therapy. His respiratory status slowly improved. Cardiology was consulted because of his chronic atrial fib and chronic diastolic congestive heart failure. They assisted with managing his congestive failure. His fluid status improved, respiratory status continued to slowly improve. Ultimately, we weaned him off the BiPAP during the day but continued to use it through the night every night and made arrangements for him to have BiPAP available when he returned to the [facility] on 11/01/2016. He was dismissed back to the [facility] on 11/01/2016 his ADMIT: 10/25/2016 RM/LOC: 404 [facility] MR#: [id number] [address] [facility] [address] [place], [place] [phone] [facility] [place] [address] General Discharge Summary SEX: M AGE: 71 : 1945 eighth hospital day with plans to continue with BiPAP at bedtime and use O2 continuously during the day at 2-4 L/minute. DISCHARGE MEDICATIONS: Medications at dismissal were to include: 1. ASA 5 grains one daily. 2. Colace 200 mg b.i.d. 3. Prednisone 30 mg daily, tapered over the next 14 days. 4. Ferrous gluconate 325 mg daily. 5. Glucotrol 2.5 mg b.i.d. 6. Lasix 40 mg b.i.d. 7. Lopressor 100 mg b.i.d. 8. Micro-K 10 mEq daily. 9. Minipress 6 mg at bedtime. 10.Justice-3 1000 mg cap two daily. 11.Pepcid 20 mg at bedtime. 12.Proscar 5 mg daily. 13.Sinequan 25 mg at bedtime. 14.Levothyroxine 88 mcg daily. 15.Tessalon Perles 100 mg b.i.d. 16.Multivitamin 1 daily. 17.Uroxatral 10 mg daily. 18.Vitamin B12 125 mcg daily. 19.Vitamin C 500 mg daily. 20.Vitamin D 2000 units daily. 21.Zocor 40 mg at bedtime. 22.Zyrtec 10 mg daily. 23.Symbicort 160/4.5, two puffs b.i.d. 24.DuoNeb via twin jet nebulizer q.i.d. 25.Flonase 2 whiffs each naris b.i.d. 26.Levemir 10 units at bedtime. 27.Lovenox 40 mg subcutaneous daily. 28.Low-dose sliding scale insulin using Humalog t.i.d. before meals. 29.Debrox two drops both ears at bedtime. 30.Hydrocodone 10 mg every 4 hours p.r.n. pain. 31.Maalox p.r.n. indigestion. ADMIT: 10/25/2016 RM/LOC: 404 [facility] MR#: [id number] [address] [id number] [address] [address] General Discharge Summary SEX: M AGE: 71 : 1945 32.Surfak 240 mg b.i.d. p.r.n. constipation. 33.Tylenol 325 mg two every 4 hours p.r.n. minor discomfort. 34.Xanax 1 mg q.i.d. p.r.n. anxiety. 35.Proventil HFA 2 puffs every 4 hours p.r.n. shortness of breath. 36.Glucagon 1 mg IM p.r.n., signs or symptoms of hypoglycemia. CONDITION AT DISCHARGE: Noted to be improved. PROGNOSIS: long-term prognosis though was poor in view of the severity of his pulmonary disease. The patient was returned to the [facility] for ongoing care. David Richard MD/ mars JOB #: [id number] CC: David Richard MD, Attending Physician David Richard MD, Family Physician
== END 2016-11-01 12:20 | DRG 291 ==
LOC: ER 10:14 → 3ICU 12:15 → 4PCU 12:15 → 3ICU 14:16 → 4PCU 10-27 18:57
PROVIDERS: ADMIT Family Medicine
DX: I11.0 Hypertensive heart disease with heart failure (principal); J96.21 Acute and chronic respiratory failure with hypoxia; E44.0 Moderate protein-calorie malnutrition; I48.2 Chronic atrial fibrillation; J44.1 Chronic obstructive pulmonary disease with (acute) exacerbation; E03.9 Hypothyroidism, unspecified; F32.9 Major depressive disorder, single episode, unspecified; I07.1 Rheumatic tricuspid insufficiency; I50.33 Acute on chronic diastolic (congestive) heart failure; E11.9 Type 2 diabetes mellitus without complications; F43.10 Post-traumatic stress disorder, unspecified; G47.33 Obstructive sleep apnea (adult) (pediatric); E78.5 Hyperlipidemia, unspecified; G89.4 Chronic pain syndrome; F64.9 Gender identity disorder, unspecified; N40.0 Benign prostatic hyperplasia without lower urinary tract symptoms; F41.9 Anxiety disorder, unspecified; I25.10 Atherosclerotic heart disease of native coronary artery without angina pectoris; G47.00 Insomnia, unspecified; R25.1 Tremor, unspecified; L57.0 Actinic keratosis; Z79.82 Long term (current) use of aspirin; Z87.891 Personal history of nicotine dependence